=== PATIENT | female | born 1965 | race African-American/Black ===

== ENCOUNTER 2019-04-20 16:05 | Emergency (ER) | payer MEDICAID ==
[~2019-04-20] VITALS: Ht 162.6 cm; Wt 68.0 kg
[~2019-04-20 16:05] MED LIST: ALBUTEROL SULF8.5 GM INH
--- NOTE | 2019-04-20 16:45 | NUR ---
ED Nurse Note: Patient presents to ER due to right ankle injury; Patient states 'rolled my foot/ankle when dog hit me'; patient was wearing 4" wedge at that time. Slight swelling over the affected area with tenderness noted. Patient moved to room in wheelchair.
[2019-04-20] MEDS ORDERED: HYDROcodone/Acetamin 5/325 tab ORAL ONE (17:45)
--- NOTE | 2019-04-20 18:03 | Diagnostic Imaging Report ---
EXAM: XR Right Ankle Complete, 3 or More Views CLINICAL HISTORY: PAIN TECHNIQUE: Frontal, lateral and oblique views of the right ankle. COMPARISON: None FINDINGS: Bones/joints: No displaced fracture or dislocation identified. Ankle mortise is intact. Small plantar calcaneal spur. Soft tissues: Mild soft tissue swelling over the right lateral malleolus. Edema in Kager's fat pad. IMPRESSION: No displaced fracture or dislocation identified.
[2019-04-20] MEDS ORDERED: IBUPROFEN600 MG ORAL (18:21)
[2019-04-20] MEDS ORDERED: NORCO 5-325 TA1 EACH ORAL (18:21)
--- NOTE | 2019-04-20 18:30 | NUR ---
ED Nurse Note: Provided instruction on how to use crutch. Patient requested a cane as patient recently had bilateral breasts surgery and patient does not want to use crutches. P.A. notified. Provided cane as ordered.
[2019-04-20 18:35] VITALS: BP 136/91
--- NOTE | 2019-04-20 18:35 | NUR ---
ED Nurse Note: Patient is being discharged from medical care. Awake, alert and oriented x4. After care instructions, including prescriptions were given. Patient verbalized understanding of After care instructions. Patient demonstrated proper use of cruches. Wade wrap applied to right ankle as ordered. All medical devices such as ID band were removed. Patient ambulated out with all personal belongings with steady gait.
--- NOTE | 2019-04-20 19:03 | Emergency Room Report ---
History of Present Illness General Chief Complaint: Lower Extremity Injury Source: Medical Record Present Illness HPI The patient is a 53-year-old female presenting for right ankle pain. She states that she was walking in heels earlier today and fell to the right ankle buckle underneath her. She did not fall. Pain is now a 10 out of 10 dull ache to the outside of the right ankle. Does not radiate. Worse with movement. She denies previous ankle injury. She denies any other symptoms Allergies: Coded Allergies: CODEINE (Verified Allergy, Intermediate, 09/06/16) DOXYCYCLINE (Verified Allergy, Intermediate, 09/06/16) LATEX (Verified Allergy, Intermediate, 09/06/16) TRAMADOL (Verified Allergy, Intermediate, 09/06/16) ERYTHROMYCIN BASE (Verified Allergy, Unknown, 04/20/19) Patient History Past Medical History: see triage record Pertinent Family History: none Reviewed Nursing Documentation: PMH: Agreed; PSxH: Agreed Nursing Documentation-PMH Past Medical History: No History, Except For Hx Asthma: Yes Review of Systems All Other Systems: negative except mentioned in HPI Physical Exam Vital Signs Date Time Temp Pulse Resp B/P (MAP) Pulse Ox O2 Delivery O2 Flow Rate FiO2 04/20/19 16:09 97.9 76 18 133/87 (102) 99 Room Air Sp02 EP Interpretation: reviewed, normal General Appearance: no apparent distress, alert, GCS 15, non-toxic Head: normocephalic, atraumatic Respiratory: speaking full sentences Musculoskeletal: back normal, no calf tenderness, decreased range of motion, swelling, tender - R ankle lateral mal Neurologic: alert, oriented x3, responsive, motor strength/tone normal, sensory intact, speech normal Psychiatric: judgement/insight normal, memory normal, mood/affect normal, no suicidal/homicidal ideation Skin: no rash Procedures Splinting Splinting : Consent: Verbal Location: R ankle Pre-Made Type: CHANDRA wrap Pre-Proc Neuro Vasc Exam: normal Post-Proc Neuro Vasc Exam: normal Patient Tolerated: Well Complications: None Medical Decision Making PA Attestation Dr. Cornell is my supervising physician. Patient management was discussed with my supervising physician Diagnostic Impression: Primary Impression: Ankle sprain Qualified Codes: S93.401A - Sprain of unspecified ligament of right ankle, initial encounter ER Course The patient is a 53-year-old female presenting for right ankle pain Ddx considered include but not limited to sprain/strain, fracture, contusion Physical exam: Vitals stable. No apparent distress R ankle: There is tenderness to palpation and edema over the R lateral malleolus. Limited active range of motion. Sensation intact to light touch. X-ray of the R ankle shows no fracture R ankle placed in CHANDRA wrap and the patient is provided crutches. ER precautions are given. Patient given prescription for Motrin and will follow up with primary care physician. RICE instructions discussed Other X-Ray Diagnostic Results Other X-Ray Diagnostic Results : X-Ray ordered: R ankle # of Views/Limited Vs Complete: 3 View, Complete Indication: Pain EP Interpretation: Yes PA Xray: Interpretation reviewed, by supervising MD, and agrees with findings. Interpretation: no dislocation, no fractures, other - + STS Impression: No acute disease Electronically Signed by: Colton Walker PA-C Last Vital Signs Date Time Temp Pulse Resp B/P (MAP) Pulse Ox O2 Delivery O2 Flow Rate FiO2 04/20/19 18:35 97.4 72 16 136/91 96 Room Air Status: improved Disposition: HOME, SELF-CARE Condition: Improved Scripts Hydrocodone Bit/Acetaminophen 5-325* (NORCO 5-325*) 1 Each Tablet 1 TAB ORAL Q6H PRN for For Pain, #5 TAB 0 Refills Prov: COLTON WALKERAPepe 04/20/19 Ibuprofen* (MOTRIN*) 600 Mg Tablet 600 MG ORAL Q8H PRN for For Pain, #30 TAB 0 Refills Prov: COLTON WALKERAPepe 04/20/19 Patient Instructions: Ankle Sprain Additional Instructions: I discussed my findings with the patient. All questions and concerns have been answered. Treatment and medication compliance have been addressed. I advised the patient that they need to follow up with PMD in 3-5 days. Return to ED if pain remains or worsens, numbness or tingling occurs, new rash is noticed, fever is noticed, or if needed for any reason. Patient verbalized understanding of discharge instructions. COLTON WALKER Apr 20, 2019 19:03
== END 2019-04-20 18:35 | disposition home or self-care (01) ==
LOC: EMR 17:15
DX: S93.401A Sprain of unspecified ligament of right ankle, initial encounter (principal); W19.XXXA Unspecified fall, initial encounter; Y92.9 Unspecified place or not applicable; Z88.6 Allergy status to analgesic agent; Z91.040 Latex allergy status
CPT/HCPCS: 29515; 99283

== ENCOUNTER 2020-05-06 21:30 | Emergency (ER) | payer MEDICAID ==
[~2020-05-06] VITALS: Ht 162.6 cm; Wt 68.0 kg
[~2020-05-06 21:30] MED LIST changes: +IBUPROFEN600 MG ORAL; +NORCO 5-325 TA1 EACH ORAL
--- NOTE | 2020-05-06 22:10 | Emergency Room Report ---
History of Present Illness General Chief Complaint: Generalized Weakness Source: Patient Present Illness HPI This is a 54-year-old female with a history of asthma. She presents with chief complaint of generalized weakness. She has cough congestion shortness of breath for about 10 days now. She tested positive for COVID at [facility] on May 02. Symptoms worsened in the last day or so. Increasing shortness of breath. Increasing weakness. Worse with exertion. Better with rest. Subjective intermittent fever and chills. Decreased appetite. No nausea or vomiting or diarrhea. Coughing is nonproductive nature. 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 Patient History Past Medical History: see triage record, old chart reviewed, asthma Past Surgical History: none Pertinent Family History: none Social History: Denies: smoking Now: No Immunizations: other Reviewed Nursing Documentation: PMH: Agreed; PSxH: Agreed Nursing Documentation-PMH Past Medical History: No History, Except For Hx Hypertension: Yes Hx Asthma: Yes Review of Systems Constitutional: Reports: chills, fever, weakness Eye: Denies: eye pain, blurred vision ENT: Denies: ear pain, nose congestion, throat swelling Respiratory: Reports: cough, shortness of breath Cardiovascular: Denies: chest pain, palpitations Gastrointestinal: Denies: abdominal pain, diarrhea, nausea, vomiting Musculoskeletal: Denies: back pain, joint pain Skin: Denies: rash Neurological: Denies: headache, numbness Endocrine: Denies: increased thirst, increased urine Hematologic/Lymphatic: Denies: easy bruising All Other Systems: negative except mentioned in HPI Physical Exam Vital Signs Date Time Temp Pulse Resp B/P (MAP) Pulse Ox O2 Delivery O2 Flow Rate FiO2 05/06/20 21:52 98.2 71 16 111/79 (90) 96 Room Air Vitals normal Sp02 EP Interpretation: reviewed, normal General Appearance: no apparent distress, alert, other - Ill-appearing Head: normocephalic, atraumatic Eyes: bilateral eye PERRL, bilateral eye EOMI ENT: hearing grossly normal, normal pharynx Neck: full range of motion, supple, no meningismus Respiratory: chest non-tender, lungs clear, normal breath sounds Cardiovascular #1: regular rate, rhythm, no murmur Gastrointestinal: normal bowel sounds, non tender, no mass, no organomegaly, no bruit, non-distended Musculoskeletal: back normal, normal range of motion, gait/station normal Psychiatric: mood/affect normal Medical Decision Making Diagnostic Impression: Primary Impression: Episode of generalized weakness Additional Impression: Acute bronchitis due to COVID-19 virus ER Course Patient with generalized weakness secondary to COVID. Laboratory data is unremarkable. Inflammatory data unremarkable. Chest raise negative. She has no respiratory distress. She is not hypoxic. Can be discharged home with symptomatic treatment as outpatient. Chest X-Ray Diagnostic Results Chest X-Ray Diagnostic Results : Chest X-Ray Ordered: Yes # of Views/Limited/Complete: 1 View Indication: Shortness of Breath EP Interpretation: Yes Interpretation: no consolidation, no effusion, no pneumothorax, no acute cardiopulmonary disease Impression: No acute disease Electronically Signed by: Joel Mijares MD Last Vital Signs Date Time Temp Pulse Resp B/P (MAP) Pulse Ox O2 Delivery O2 Flow Rate FiO2 05/06/20 21:52 98.2 71 16 111/79 (90) 96 Room Air Status: improved Disposition: HOME, SELF-CARE Condition: Stable Scripts Dexamethasone (Decadron) 6 Mg Tablet 6 MG PO DAILY, #7 TAB Prov: Joel Mijares MD 05/06/20 Additional Instructions: Increase fluids. Increase use of your inhaler. Take 2 puffs every 4 hours as needed for cough and shortness of breath. Follow-up with your doctor in 7 days. Return if symptoms worsen. Joel Mijares MD May 06, 2020 22:10
[2020-05-06] MEDS ORDERED: dexAMETHasone 10mg/ml Inj IV ONE (22:15)
--- NOTE | 2020-05-06 22:15 | NUR ---
ED Nurse Note: Recieved pt from home, brought in by family with c/o weakness, pt had Covid testing on monday and states is positive, today started with s/s of weakness, pt is ambulatory, no chest pain, sob or labored breathing, states has mild nausea, no pain, pt denies any other s/s, only weak, pt immediately isolated and arrived with mask, family also, will resume care as ordered and cotinue to closely monitor.
[2020-05-06 22:46] LABS: BASOPHILS % (AUTO) 0.6 % (0.0-2.0); EOSINOPHILS % (AUTO) 0.5 % (0.0-3.0); HEMATOCRIT 41.3 % (37.0-47.0); HEMOGLOBIN 13.1 G/DL (12.0-16.0); LYMPHOCYTES % (AUTO) 28.2 % (20.0-45.0); MEAN CORPUSCULAR VOLUME 84 FL (80-99); MONOCYTES % (AUTO) 10.4 % (1.0-10.0); NEUTROPHILS % (AUTO) 60.4 % (45.0-75.0); PLATELET COUNT 319 K/UL (150-450); RED BLOOD COUNT 4.94 M/UL (4.20-5.40); RED CELL DISTRIBUTION WIDTH 14.2 % (11.6-14.8)
[2020-05-06 23:03] LABS: ANION GAP 9 mmol/L (5-15); BLOOD UREA NITROGEN 13 mg/dL (7-18); CALCIUM 8.2 MG/DL (8.5-10.1); CARBON DIOXIDE 27 MMOL/L (21-32); CHLORIDE 105 MMOL/L (98-107); POTASSIUM 3.9 MMOL/L (3.5-5.1); SODIUM 141 MMOL/L (136-145)
[2020-05-06 23:12] LABS: ALANINE AMINOTRANSFERASE 17 U/L (12-78); ALBUMIN 3.6 G/DL (3.4-5.0); ALBUMIN/GLOBULIN RATIO 0.9 (1.0-2.7); ALKALINE PHOSPHATASE 70 U/L (46-116); ASPARTATE AMINO TRANSFERASE 21 U/L (15-37); BILIRUBIN,TOTAL 0.4 MG/DL (0.2-1.0); FERRITIN 146 NG/ML (8-388)
[2020-05-06] MEDS ORDERED: DECADRON6 MG PO (23:30)
--- NOTE | 2020-05-07 | NUR ---
ER DISCHARGE NOTE: Patient is cleared to be discharged per ERMD, pt is aox4, on room air, with stable vital signs. pt was given dc and prescription instructions, pt was able to verbalize understanding, pt id band and iv site removed without complications. pt is able to ambulate with steady gait. pt took all belongings.
[2020-05-07 00:05] VITALS: BP 126/71
[2020-05-07 00:15] VITALS: BP 126/71
--- NOTE | 2020-05-07 12:02 | Diagnostic Imaging Report ---
Indication: Shortness of breath Technique: One view of the chest Comparison: 09/06/2016 Findings: Lungs and pleural spaces are clear. Heart size is normal. Impression: No acute process
== END 2020-05-07 00:15 | disposition home or self-care (01) ==
LOC: EMR 22:35
DX: U07.1 COVID-19 (principal); J20.8 Acute bronchitis due to other specified organisms; R53.1 Weakness; I10 Essential (primary) hypertension; J45.909 Unspecified asthma, uncomplicated; Z88.5 Allergy status to narcotic agent; Z91.040 Latex allergy status; Z88.1 Allergy status to other antibiotic agents
CPT/HCPCS: 36415; 71045; 80053; 82728; 83605; 85025; 86140; 96361; 96374; J7030; Z7502; 99284